=== PATIENT | male | born 1945 | race Caucasian/White ===

== ENCOUNTER 2022-11-20 20:59 | Emergency (ER) | payer SELFPAY ==
[~2022-11-20] VITALS: Ht 170.2 cm; Wt 85.0 kg
[2022-11-20 21:04] VITALS: BP 112/82
[2022-11-20 22:41] LABS: BASOPHILS % 0.2 % (0.0-2.0); EOSINOPHILS % 1.4 % (0.0-5.0); HEMOGLOBIN. 14.5 g/dL (14.0-18.0); LYMPHOCYTES % 16.6 % (20.0-50.0); MEAN PLATELET VOLUME 8.3 fl (7.4-10.4); MONOCYTES % 8.3 % (2.0-8.0); NEUTROPHILS % 73.5 % (40.0-76.0); PLATELET 159 x1000/uL (130-400); RED CELL DISTRIBUTION WIDTH 13.3 % (11.6-14.6)
[2022-11-20 22:46] LABS: CHLORIDE 103 mEq/L (98-107)
[2022-11-20 22:48] LABS: PROTHROMBIN TIME 10.8 sec (9.6-11.0)
[2022-11-20] MEDS ORDERED: SODIUM CHLORIDE 0.9% 1,000 ML IV ONE (23:00)
== END 2022-11-21 01:30 | disposition left against medical advice (07) ==
LOC: ER 20:59
DX: R55 Syncope and collapse (principal); R53.1 Weakness; R05.9 Cough, unspecified; E11.9 Type 2 diabetes mellitus without complications; I10 Essential (primary) hypertension
CPT/HCPCS: 36415; 71045; 80053; 83605; 83880; 84484; 85025; 85610; 93005; 99285; J7030